=== PATIENT | female | born 1945 | race Caucasian/White ===

== ENCOUNTER 2018-04-02 15:40 | Outpatient (CLI) | payer MEDICARE ==
--- NOTE | 2018-04-02 16:41 | CT ---
LUMBAR SPINE CT NONCONTRAST: 04/02/18 INDICATION; Lumbar radiculopathy. FINDINGS: There is evidence of posterior metallic fusion of L4 on L5 with bilateral pedicle screws and bilatera l vertical interconnecting rods. There is grade I spondylolisthesis at L4-5. No compression deformity . L5-S1: There is evidence of posterior decompression. Disc osteophyte complex is present. There is mil d effacement of the ventral aspect of the vertebral canal and mild to moderate right foraminal narrow ing. There is no high grade left foraminal stenosis. L4-5: Evidence of posterior decompression. There is a disc osteophyte without high grade compromise o f the postoperative vertebral canal. There is mild bilateral neural foraminal narrowing. L3-4: There is moderate to severe central canal stenosis due to broad based disc bulge as well as noé ateral moderate to severe degenerative facet hypertrophy. Moderate bilateral neural foraminal narrowi ng present. L2-3: There is moderate central canal stenosis as the result of broad based disc bulge. Mild narrowin g of each neural foramen present. L1-2: Mild narrowing of central canal due to disc osteophyte complex. There is no high grade foramina l stenosis. Evaluation of the imaged retroperitoneum reveals scattered vascular disease and colonic diverticulosi s. IMPRESSION: Postoperative lumbar spine. Multilevel degenerative change is present which is most pronounced at the level cephalad to operative fusion, L3-4, with moderate to severe central canal stenosis. POS: [facility]
== END 2018-04-02 15:41 | disposition home or self-care (01) ==
LOC: TBSIIMAG 15:40
PROVIDERS: ATTEND Neurological Surgery
DX: M47.26 Other spondylosis with radiculopathy, lumbar region (principal); M48.061 Spinal stenosis, lumbar region without neurogenic claudication; Z98.1 Arthrodesis status
CPT/HCPCS: 72131

== ENCOUNTER 2018-04-23 14:37 | Outpatient (CLI) | payer MEDICARE ==
--- NOTE | 2018-04-23 16:51 | MRI ---
MRI LUMBAR SPINE WITH AND WITHOUT IV CONTRAST: Date: 04/23/18 HISTORY: Lumbar radiculopathy. Lower leg pain for many months with lower back pain. FINDINGS: There is a 1.6 cm increased T2-weighted signal intensity structure seen within the mid portion of the right kidney which does not demonstrate enhancement and likely represents a parapelvic renal cyst. T he remainder of the retroperitoneal structures demonstrate a normal MRI appearance. Conus medullaris is normal in appearance and terminates at the level of the T12-L1 level. Postsurgical change related to posterior fusion seen at the L4-5 level with metallic susceptibility a rtifact seen related to bipedicular screws and posterior rods. Laminectomy defects are seen at these levels. There is otherwise normal signal intensity demonstrated throughout the bone marrow. T11-12 Level: There is a broad based disc bulge with a larger central disc protrusion. There is decreased T2 and T1 -weighted signal intensity seen posterior to the right aspect of the vertebral body within the centra l canal, which may represent extrusion of disc material. There is narrowing of the ventral subarachno id space and encroachment on the distal spinal cord, but there is normal signal intensity in the dist al spinal cord. There is moderate right-sided neural foraminal narrowing with mild left-sided neural foraminal narrowing. T12-L1 Level: There is a mild broad based disc osteophyte complex. This results in slight flattening of the anterio r aspect of the thecal sac. Mild facet degenerative changes are present at this level. Neural foramin a are patent. L1-2 Level: There is a broad based disc osteophyte complex. Mild facet degenerative changes are noted. Findings r esult in generalized mild narrowing of the central spinal canal with mild bilateral neural foraminal narrowing, greater on the right. L2-3 Level: There is a broad based disc osteophyte complex. There are moderate facet hypertrophic changes and lig amentous thickening. Findings result in moderate narrowing of the central spinal canal with mild to m oderate right and mild left-sided neural foraminal narrowing. L3-4 Level: There is a broad based disc osteophyte complex with severe facet hypertrophic changes. There is sever e narrowing of the central spinal canal, primarily related to the bony encroachment from the severe f acet hypertrophic changes, as well as ligamentous thickening. The overall AP dimension of the central spinal canal at this level is 3.0 mm. There is moderate left and moderate to severe right-sided neur al foraminal narrowing. There is also prominent narrowing of the lateral recesses at this level. L4-5 Level: There are postsurgical changes related to posterior decompression. There is slight anterolisthesis of L4 on L5. There is mild loss of intervertebral disc height. There is a mid broad based disc bulge. H owever, there is no significant narrowing of the central spinal canal. There is mild bilateral neural foraminal narrowing present. There is a focal 7.0 mm CSF signal intensity structure located in the central canal centrally between the severe facet hypertrophic changes, and this likely represents a synovial cyst which results in m ass effect on the posterior aspect of the thecal sac at the superior aspect of the L4 vertebral body attributing to the severe narrowing at this level. L5-S1 Level: There is evidence of posterior decompression. There is a mild broad based disc osteophyte complex. Du e to metallic susceptibility artifact at this level, the right neural foramen is not well seen, and t here may be moderate to severe narrowing of the right neural foramen. There is moderate left-sided ne ural foraminal narrowing at this level. There is narrowing of the central spinal canal. There is evidence of scar tissue seen posterior to the levels of decompression. However, there is a g reater degree of enhancing soft tissue density posterior to the L4 vertebral body near the L4-5 inter vertebral disc space, which is likely related to greater degree of scarring, resulting in mass effect and mild narrowing of the thecal sac secondary to mass effect posteriorly. However, the abnormal sca r tissue does not appear to extend on either side of the thecal sac at this level. IMPRESSION: 1. Multilevel degenerative changes in the lumbar spine as described above. Findings are greatest at the L3-4 level where there is very severe narrowing of the central spinal canal, mainly attributable to the severe facet hypertrophic changes at this level. At the level of the superior end plate of the L4 vertebral body, there is a CSF signal intensity structure in the midline thought to represent syn ovial cyst between the hypertrophied medial aspects of each facet at this level. There is moderate to severe right-sided neural foraminal narrowing at the L3-4 level. 2. Suggestion of extrusion of disc material seen at the right posterolateral aspect of the T12 verte bral body extending inferiorly from the T11-12 level where there is a central disc protrusion and gen eralized disc bulge. 3. Mass effect on posterior aspect of the thecal sac posterior to the L4 vertebral body and at the L 4-5 level, likely related to scar tissue. 4. Right renal cyst. POS: [facility]
== END 2018-04-23 14:38 | disposition home or self-care (01) ==
LOC: TBSIIMAG 14:37
PROVIDERS: ATTEND Neurological Surgery
DX: M47.26 Other spondylosis with radiculopathy, lumbar region (principal); M48.061 Spinal stenosis, lumbar region without neurogenic claudication; M99.83 Other biomechanical lesions of lumbar region; M51.24 Other intervertebral disc displacement, thoracic region; M48.8X4 Other specified spondylopathies, thoracic region; N28.1 Cyst of kidney, acquired
CPT/HCPCS: 72158; 82565

== ENCOUNTER 2018-05-15 12:09 | Outpatient (CLI) | payer MEDICARE ==
[2018-05-15 14:14] LABS: Anion Gap 9 mmol/L (10-20); BUN (Urea Nitrogen) 7 mg/dL (9.8-20.1); Calc. Creatinine Clearance 0 mL/min (70-130); Calcium 10.1 mg/dL (7.8-10.44); Carbon Dioxide 34 mmol/L (23-31); Chloride 102 mmol/L (98-107); Estimated GFR-MDRD 71; Glucose 174 mg/dL (83-110); Potassium 3.5 mmol/L (3.5-5.1); Sodium 141 mmol/L (136-145)
--- NOTE | 2018-05-19 17:24 | EKG ---
Test Reason : Blood Pressure : / mmHG Vent. Rate : 058 BPM Atrial Rate : 058 BPM P-R Int : 154 ms QRS Dur : 082 ms QT Int : 420 ms P-R-T Axes : 026 056 045 degrees QTc Int : 412 ms Sinus bradycardia with sinus arrhythmia Otherwise normal ECG When compared with ECG of 04-DEC-2012 14:08, No significant change was found Confirmed by JAMES CAMPBELL (2) on 05/19/2018 5:23:27 PM Referred By: BIBIANA Confirmed By:JAMES CAMPBELL
== END 2018-05-15 12:10 | disposition home or self-care (01) ==
LOC: LABBT 12:09
PROVIDERS: ATTEND Neurological Surgery
DX: Z01.818 Encounter for other preprocedural examination (principal); M48.062 Spinal stenosis, lumbar region with neurogenic claudication
CPT/HCPCS: 80048; 93005; 93010

== ENCOUNTER 2018-05-22 05:29 | Day surgery (SDC) | payer MEDICARE ==
[2018-05-15 12:48] VITALS: BMI 29.2
[2018-05-22] MEDS ORDERED: CEFAZOLIN/Water 2 GM/20 ML SYRINGE ONE ×2 (06:23→11:42)
[2018-05-22] MEDS ORDERED: Thrombin 5000 UNITS/5 ML VIAL ONE (06:24)
[2018-05-22] MEDS ORDERED: Bupivacaine HCl 0.5%/Epinephrine 1:200,000/PF 30 ml Vial ONE (06:24)
[2018-05-22] MEDS ORDERED: Fentanyl 250 MCG/5 ML VIAL ONE (06:52)
[2018-05-22] MEDS ORDERED: Fentanyl 100 MCG/2 ML VIAL ONE (09:56)
--- NOTE | 2018-05-22 10:18 | OP ---
DATE OF PROCEDURE: 05/22/2018 SURGEON: Gal He M.D. RN CLINICAL DOCUMENTATION: Miguel Cunningham PA-C INDICATION: Pain. DIAGNOSIS: Adjacent level lumbar stenosis. PROCEDURE: Reoperation L3-L4 lumbar decompression. ANESTHESIA: General. TECHNIQUE: The patient was brought into the operating room and placed under general anesthesia. She was flipped from a supine to a prone position on the operating room table. A linear incision was pl anned over the L3-L4 segment, which encompassed a portion of her previous incision. After prepping a nd draping and after an appropriate operative pause, the incision was created. The soft tissues were swept away from midline. Self-retaining retractors were placed in the wound for optimal exposure. After confirming the appropriate level with C-arm fluoroscopy, a high-speed cutting drill bit as well as 2, 3 and 4-mm Kerrison was used to perform a laminectomy at L3-L4 segment. The laminectomy exten ded to encompass the medial aspect of the facet joints until the L3-L4 segment was well decompressed. The wound was then irrigated. Hemostasis was maintained throughout. The wound was then closed in anatomic layers and a pressure dressing was applied. There were no known procedural complications.
[2018-05-22] MEDS ORDERED: HYDROcodone/Acetaminophen 5/325 mg Tablet ONE (12:41)
[2018-05-22] MEDS ORDERED: Ondansetron HCl/PF 4 MG/2 ML Vial ONE (15:30)
[2018-05-22] MEDS ORDERED: PROPOFOL 200 MG/20 ML VIAL ONE (15:30)
[2018-05-22] MEDS ORDERED: Glycopyrrolate 0.2 MG/ML 5 ML SYRINGE ONE (15:30)
[2018-05-22] MEDS ORDERED: ePHEDrine/0.9% NaCl/PF SYRINGE 50 mg/10 ml ONE (15:30)
[2018-05-22] MEDS ORDERED: Lidocaine 1% PF 5 ML VIAL ONE (15:30)
== END 2018-05-22 12:40 | disposition home or self-care (01) ==
LOC: SDC 05:29
PROVIDERS: ATTEND Neurological Surgery
PROC: 0ST20ZZ Resection of Lumbar Vertebral Disc, Open Approach (ICD-10-PCS; principal; 2018-05-22)
PROC: 01NB0ZZ Release Lumbar Nerve, Open Approach (ICD-10-PCS; 2018-05-22)
DX: M48.062 Spinal stenosis, lumbar region with neurogenic claudication (principal)
CPT/HCPCS: 36416; 76001; 96374; 96375; J0131; J0670; J2001; J2405; J2704; J3010

== ENCOUNTER 2018-09-04 11:18 | Outpatient (CLI) | payer MEDICARE | END 2018-09-04 11:19 | disposition home or self-care (01) | LOC: BICMAMMO 11:18 | PROVIDERS: ATTEND Nurse Practitioner Family | DX: Z12.31 Encounter for screening mammogram for malignant neoplasm of breast (principal); R92.1 Mammographic calcification found on diagnostic imaging of breast | CPT/HCPCS: 77063; 77067 ==

== ENCOUNTER 2018-10-01 11:21 | Outpatient (CLI) | payer MEDICARE ==
--- NOTE | 2018-10-01 12:12 | RAD ---
TWO VIWES LEFT HIP: Comparison: None. History: Left hip pain after a fall. FINDINGS: Two views of the left hip shows no evidence of acute fracture or dislocation. No degenerative changes are seen. Mild overlying soft tissue swelling is seen. IMPRESSION: No evidence of acute osseous abnormality. POS: [facility]
== END 2018-10-01 11:22 | disposition home or self-care (01) ==
LOC: TBSIIMAG 11:21
PROVIDERS: ATTEND Neurological Surgery
DX: M25.552 Pain in left hip (principal)

== ENCOUNTER 2019-08-05 13:55 | Outpatient (CLI) | payer MEDICARE ==
--- NOTE | 2019-08-05 15:02 | BD ---
DEXA BONE DENSITY EXAM: HISTORY: A 74-year-old postmenopausal female for screening. COMPARISON: None. FINDINGS: LEFT HIP BMD (g/cm2) T-SCORE LEFT FEMORAL NECK 0.766 -0.7 TOTAL PROXIMAL LEFT FEMUR 0.985 -0.4 RIGHT HIP BMD (g/cm2) T-SCORE RIGHT FEMORAL NECK 0.926 0.7 TOTAL PROXIMAL RIGHT FEMUR 0.941 0.0 IMPRESSION: Normal bone mineral density. POS: OFF
== END 2019-08-05 13:56 | disposition home or self-care (01) ==
LOC: BICMAMMO 13:55
PROVIDERS: ATTEND Nurse Practitioner Family
DX: Z13.820 Encounter for screening for osteoporosis (principal); Z78.0 Asymptomatic menopausal state
CPT/HCPCS: 77080

== ENCOUNTER 2019-09-09 14:09 | Outpatient (CLI) | payer MEDICARE ==
--- NOTE | 2019-09-09 14:50 | MMO ---
Bilateral MAMMO Bilat Screen [facility]. CLINICAL HISTORY: Patient is 74 years old and is seen for screening. The patient has no family history of breast cancer. The patient has no personal history of cancer. The patient has a history of right Stereotatic Biopsy in March, - benign. VIEWS: The views performed were: bilateral craniocaudal with tomosynthesis and bilateral mediolateral oblique with tomosynthesis. FILMS COMPARED: The present examination has been compared to prior imaging studies performed at [facility] on 04/14/2014, 11/30/2015, 12/12/2016 and 09/04/2018. This study has been interpreted with the assistance of computer-aided detection. MAMMOGRAM FINDINGS: There are scattered fibroglandular densities. There are stable benign appearing calcifications seen in both breasts. There are no suspicious masses, suspicious calcifications, or new areas of architectural distortion. IMPRESSION: THERE IS NO MAMMOGRAPHIC EVIDENCE OF MALIGNANCY. A ROUTINE FOLLOW-UP MAMMOGRAM IN 1 YEAR IS RECOMMENDED. THE RESULTS OF THIS EXAM WERE SENT TO THE PATIENT. ACR BI-RADS Category 2 - Benign finding MAMMOGRAPHY NOTE: 1. A negative mammogram report should not delay a biopsy if a dominant of clinically suspicious mass is present. 2. Approximately 10% to 15% of breast cancers are not detected by mammography. 3. Adenosis and dense breasts may obscure an underlying neoplasm. Reported by: SANNA RODRÍGUEZ MD Electonically Signed: [id number]
== END 2019-09-09 14:10 | disposition home or self-care (01) ==
LOC: BICMAMMO 14:09
PROVIDERS: ATTEND Nurse Practitioner Family
DX: Z12.31 Encounter for screening mammogram for malignant neoplasm of breast (principal); Z91.89 Other specified personal risk factors, not elsewhere classified
CPT/HCPCS: 77063; 77067

== ENCOUNTER 2020-12-17 10:27 | Outpatient (CLI) | payer MEDICARE | END 2020-12-17 10:28 | disposition home or self-care (01) | LOC: BICMAMMO 10:27 | PROVIDERS: ATTEND Nurse Practitioner Family | DX: Z12.31 Encounter for screening mammogram for malignant neoplasm of breast (principal); Z91.89 Other specified personal risk factors, not elsewhere classified | CPT/HCPCS: 77063; 77067 ==